=== PATIENT | female | born 1990 | race Caucasian/White ===

== ENCOUNTER 2018-06-23 18:48 | Emergency (ER) | payer MEDICAID, SELFPAY ==
[2018-06-23 18:54] VITALS: BP 119/63; PULSE 112; RESP 18; TEMP 37; O2SAT 99
--- NOTE | 2018-06-23 19:21 | W.ED.GENAD ---
Discharge Plan Disposition Patient Disposition: HOME Condition: Fair Discharge Details Chief Complaint: Sorethroat Clinical Impression: Strep pharyngitis Primary Care Provider: Valery Yepez ED Provider: Shelbi Villanueva Home Meds and New Rx's Prescriptions: New penicillin V potassium 500 mg tablet 500 mg PO BID 10 Days Qty: 20 RF: 0 ondansetron 4 mg tablet,disintegrating 4 mg PO QID PRN (Reason: nausea and vomiting) Qty: 10 RF: 0 Continue medroxyprogesterone [Depo-Provera] 150 MG/1 ML suspension 150 mg IM Q 3 MONTHS RF: 0 Discharge Instructions Instructions: Pharyngitis (ED) Additional Instructions: Encourage hydration. Tylenol and ibuprofen as needed for discomfort. He may continue with the lidocaine as prescribed to help with sore throat. We continue with lozenges if this helps. Zofran is prescribed to help with nausea. I have asked our career counselor to reach out to you with local primary care physician and follow up appointment. Take antibiotic as prescribed, even if symptoms improve please take the entire course. If you develop worsening pain, inability to stay hydrated or other new/worsening symptoms please seek care urgently once again. Stand Alone Forms: Work Release Referrals: Valery Yepez [Primary Care Provider] - Discharge Data Discharge Date/Time-TO BE ENTERED AT DEPARTURE: 06/23/18 20:29 Medical Decision Making Patient 28-year-old female, accompanied by significant other, with chief complaint of sore throat that began last night. States her throat has progressively been worsening. States that now she is having discomfort with swallowing. She is handling secretions well. Has been trying to hydrate. Is not taking anything since Tylenol early this morning. On exam, posterior oropharynx to be erythematous with white exudate. No swelling, uvula is midline. No trismus, no swelling under the tongue. Strep test was performed by nursing staff was found to be positive. Discussed these findings with the patient. She is endorsing some nausea and epigastric discomfort which she reports is acute on chronic. She reports she is been diagnosed with colitis previously but is unclear if this is ulcerative colitis or was an acute bout of colitis. She reports that she is not seen been seen by primary care physician for several years. She has had this chronic waxing and waning abdominal discomfort for the past several years, it will try to set the patient up with a primary care physician, I have placed a request with our career counselor to help establish PCP. She reports she has had colonoscopy and endoscopy hisorically for this pain. I questioned if she would like this evaluated at this time and she does not feel that it has acutely changed. The patient is a nursing nausea, will give ODT Zofran, Tylenol and ibuprofen as well as viscous lidocaine to help with sore throat. UPT negative. Patient reports she is feeling improved with Zofran, states that epigastric discomfort is improving. Will treat strep throat with Penicillin. Encouraged hydration. Discussed new/wrosening symptoms and when to seek care urgently once again. client service coordinator to help with PCP set up as above. All of her questions adn concerns were addressed, she is in agreement with this plan. HPI General Mode of arrival: ambulatory. Date/Time Provider Initiated Documentation: 06/23/18 19:12. Limitations to Documentation: no limitations. Information obtained by: patient and family. History of Present Illness 28 year old F presents to the emergency department with the chief complaint of sore throat, described as moderate, Quality is described as stabbing and aching, and is localized to the mouth. Patient reports no radiation. Patient started experiencing this day(s) (1) and it has been constant. No relieving factors improve symptom(s), Eating worsens symptoms . Patient notes loss of appetite and nausea/vomiting (endorses chronic nausea which has been icnreased with acute illness); denies chest pain, cough, fever/chills, headaches, rash and syncope. Patient did receive the following treatments prior to arrival, none Related Data Home Medications Medication Instructions Recorded Confirmed medroxyprogesterone [Depo-Provera] 150 mg IM Q 3 MONTHS vial 08/07/17 06/23/18 ondansetron 4 mg PO QID PRN #10 tab 06/23/18 penicillin V potassium 500 mg PO BID 10 Days #20 tab 06/23/18 Previous Rx's Medication Instructions Recorded ondansetron 4 mg PO QID PRN #10 tab 06/23/18 penicillin V potassium 500 mg PO BID 10 Days #20 tab 06/23/18 Allergies Allergy/AdvReac Type Severity Reaction Status Date / Time BANDAID ADHESIVE Allergy Mild SKIN Uncoded 08/28/17 12:09 IRRITATION General Stated Complaint: Sorethroat PEDRO: 4 Review of Systems Constitutional Reports as per HPI and Denies headache(s) Eyes Denies blurry vision and Denies irritation ENT Reports as per HPI, Reports dysphagia, Denies ear discharge, Denies otalgia, Denies facial pain, Denies headache(s), Denies sinus pain, Denies sinus pressure and Reports sore throat Cardiovascular Reports as per HPI, Denies chest pain and Denies dyspnea Respiratory Reports as per HPI, Denies cough and Denies dyspnea Gastrointestinal Reports as per HPI, Reports abdominal pain (endorses chronic epigastric discomfort, unchanged), Denies change in bowel habits, Reports dysphagia, Reports nausea and Denies vomiting Integumentary/Breasts Reports as per HPI and Denies rash Neurologic Reports as per HPI and Denies headache(s) [facility] Social History Smoking/Tobacco Use Status: Never Exam Const General: cooperative, healthy appearing, comfortable, no acute distress, well developed and well groomed Nutritional Appearance: average body habitus and well nourished Orientation: alert and awake [facility] Head: normal to inspection, normocephalic and atraumatic Ears: hearing grossly normal bilaterally, external ears normal and TM's normal bilaterally General nose exam: external nose normal Face and sinus: normal facial exam and sinuses nontender Mouth: oral mucosae normal, lip normal, oropharynx normal, moist mucous membranes, no muffled voice and no trismus Teeth and gingiva: dentition normal Throat: uvula midline, posterior oropharynx abnormal erythema and exudates, uvula not displaced and no uvular edema Eyes General: appearance normal, both eyes and all related structures Neck Neck: trachea midline, supple and lymphadenopathy Resp Effort & Inspection: normal respiratory effort, able to speak in complete sentences and no respiratory distress Auscultation: clear to auscultation bilaterally, no rales, no rhonchi and no wheezes Cardio Rate: regular rate Rhythm: regular rhythm Heart Sounds: S1 normal and S2 normal GI Inspection: normal to inspection, no edema, non-distended and no incisions Palpation: soft, no hepatosplenomegaly, not firm, no guarding, not rigid and tender (epigastric discomfort with palpation) Auscultation: normal bowel sounds Skin General skin exam: no rashes or lesions noted Trauma: no lacerations or abrasions Neuro General: alert and awake Cognition: normal cognition Speech: speech normal Gait: normal gait Psych Appearance: grossly normal and well kempt Mental Status: mental status grossly normal Speech and Movement: speech and movement normal Course Vital Signs Temperature 37.0 C 06/23/18 18:54 Pulse 112 H 06/23/18 18:54 Respiratory Rate 18 06/23/18 18:54 Blood Pressure 119/63 06/23/18 18:54 Pulse Oximetry 99 06/23/18 18:54 Temperature 37.0 C 06/23/18 18:54 Temperature Source Temporal Artery Scan 06/23/18 18:54 Pulse 112 H 06/23/18 18:54 Respiratory Rate 18 06/23/18 18:54 Respiratory Effort 06/23/18 18:54 Blood Pressure 119/63 06/23/18 18:54 Blood Pressure Position Sitting 06/23/18 18:54 Pulse Oximetry 99 06/23/18 18:54 Oxygen Delivery Method Room Air 06/23/18 18:54 Oxygen Flow Rate 0 06/23/18 18:54 Lab/Test Results Lab/Test Results: POC Strep Test-STEW(Rapid) Start: 06/23/18 19:05 Freq: .Rapid Strep Test Status: Active Protocol: Document 06/23/18 19:06 (Rec: 06/23/18 19:06 [email or web address]) Strep test-STEW(Rapid)-POC POC-Strep test-STEW (Rapid) Positive POC-Strep test-STEW (Rapid) Positive
--- NOTE | 2018-06-23 19:25 | ED.GENADUL_ITS ---
Discharge Plan Disposition Patient Disposition: HOME Condition: Fair Discharge Details Chief Complaint: Sorethroat Clinical Impression: Strep pharyngitis Primary Care Provider: Valery Yepez ED Provider: Shelbi Villanueva Home Meds and New Rx's Prescriptions: New penicillin V potassium 500 mg tablet 500 mg PO BID 10 Days Qty: 20 RF: 0 ondansetron 4 mg tablet,disintegrating 4 mg PO QID PRN (Reason: nausea and vomiting) Qty: 10 RF: 0 Continue medroxyprogesterone [Depo-Provera] 150 MG/1 ML suspension 150 mg IM Q 3 MONTHS RF: 0 Discharge Instructions Instructions: Pharyngitis (ED) Additional Instructions: Encourage hydration. Tylenol and ibuprofen as needed for discomfort. He may continue with the lidocaine as prescribed to help with sore throat. We continue with lozenges if this helps. Zofran is prescribed to help with nausea. I have asked our pediatric care coordinator to reach out to you with local primary care physician and follow up appointment. Take antibiotic as prescribed , even if symptoms improve please take the entire course. If you develop worsening pain, inability to stay hydrated or other new/worsening symptoms please seek care urgently once again. Stand Alone Forms: Work Release Referrals: Valery Yepez [Primary Care Provider] - Discharge Data Discharge Date/Time-TO BE ENTERED AT DEPARTURE: 06/23/18 20:29 Medical Decision Making Patient 28-year-old female, accompanied by significant other, with chief complaint of sore throat that began last night. States her throat has progressively been worsening. States that now she is having discomfort with swallowing. She is handling secretions well. Has been trying to hydrate. Is not taking anything since Tylenol early this morning. On exam, posterior oropharynx to be erythematous with white exudate. No swelling, uvula is midline. No trismus, no swelling under the tongue. Strep test was performed by nursing staff was found to be positive. Discussed these findings with the patient. She is endorsing some nausea and epigastric discomfort which she reports is acute on chronic. She reports she is been diagnosed with colitis previously but is unclear if this is ulcerative colitis or was an acute bout of colitis. She reports that she is not seen been seen by primary care physician for several years. She has had this chronic waxing and waning abdominal discomfort for the past several years, it will try to set the patient up with a primary care physician, I have placed a request with our pediatric care coordinator to help establish PCP. She reports she has had colonoscopy and endoscopy hisorically for this pain. I questioned if she would like this evaluated at this time and she does not feel that it has acutely changed. The patient is a nursing nausea, will give ODT Zofran, Tylenol and ibuprofen as well as viscous lidocaine to help with sore throat. UPT negative. Patient reports she is feeling improved with Zofran, states that epigastric discomfort is improving. Will treat strep throat with Penicillin. Encouraged hydration. Discussed new/wrosening symptoms and when to seek care urgently once again. career development coordinator/teacher to help with PCP set up as above. All of her questions adn concerns were addressed, she is in agreement with this plan. HPI General Mode of arrival: ambulatory . Date/Time Provider Initiated Documentation: 06/23/18 19:12 . Limitations to Documentation: no limitations . Information obtained by: patient and family . History of Present Illness 28 year old F presents to the emergency department with the chief complaint of sore throat, described as moderate, Quality is described as stabbing and aching, and is localized to the mouth. Patient reports no radiation. Patient started experiencing this day(s) (1) and it has been constant. No relieving factors improve symptom(s), Eating worsens symptoms . Patient notes loss of appetite and nausea/vomiting (endorses chronic nausea which has been icnreased with acute illness); denies chest pain, cough, fever/chills, headaches, rash and syncope. Patient did receive the following treatments prior to arrival, none Related Data Home Medications Medication Instructions Recorded Confirmed medroxyprogesterone [Depo-Provera] 150 mg IM Q 3 MONTHS vial 08/07/17 06/23/18 ondansetron 4 mg PO QID PRN #10 tab 06/23/18 penicillin V potassium 500 mg PO BID 10 Days #20 tab 06/23/18 Previous Rx's Medication Instructions Recorded ondansetron 4 mg PO QID PRN #10 tab 06/23/18 penicillin V potassium 500 mg PO BID 10 Days #20 tab 06/23/18 Allergies Allergy/AdvReac Type Severity Reaction Status Date / Time BANDAID ADHESIVE Allergy Mild SKIN Uncoded 08/28/17 12:09 IRRITATION General Stated Complaint: Sorethroat PEDRO: 4 Review of Systems Constitutional Reports as per HPI and Denies headache(s) Eyes Denies blurry vision and Denies irritation ENT Reports as per HPI, Reports dysphagia, Denies ear discharge, Denies otalgia, Denies facial pain, Denies headache(s), Denies sinus pain, Denies sinus pressure and Reports sore throat Cardiovascular Reports as per HPI, Denies chest pain and Denies dyspnea Respiratory Reports as per HPI, Denies cough and Denies dyspnea Gastrointestinal Reports as per HPI, Reports abdominal pain (endorses chronic epigastric discomfort, unchanged), Denies change in bowel habits, Reports dysphagia, Reports nausea and Denies vomiting Integumentary/Breasts Reports as per HPI and Denies rash Neurologic Reports as per HPI and Denies headache(s) [facility] Social History Smoking/Tobacco Use Status: Never Exam Const General: cooperative, healthy appearing, comfortable, no acute distress, well developed and well groomed Nutritional Appearance: average body habitus and well nourished Orientation: alert and awake [facility] Head: normal to inspection, normocephalic and atraumatic Ears: hearing grossly normal bilaterally, external ears normal and TM's normal bilaterally General nose exam: external nose normal Face and sinus: normal facial exam and sinuses nontender Mouth: oral mucosae normal, lip normal, oropharynx normal, moist mucous membranes, no muffled voice and no trismus Teeth and gingiva: dentition normal Throat: uvula midline, posterior oropharynx abnormal erythema and exudates, uvula not displaced and no uvular edema Eyes General: appearance normal, both eyes and all related structures Neck Neck: trachea midline, supple and lymphadenopathy Resp Effort & Inspection: normal respiratory effort, able to speak in complete sentences and no respiratory distress Auscultation: clear to auscultation bilaterally, no rales, no rhonchi and no wheezes Cardio Rate: regular rate Rhythm: regular rhythm Heart Sounds: S1 normal and S2 normal GI Inspection: normal to inspection, no edema, non-distended and no incisions Palpation: soft, no hepatosplenomegaly, not firm, no guarding, not rigid and tender (epigastric discomfort with palpation) Auscultation: normal bowel sounds Skin General skin exam: no rashes or lesions noted Trauma: no lacerations or abrasions Neuro General: alert and awake Cognition: normal cognition Speech: speech normal Gait: normal gait Psych Appearance: grossly normal and well kempt Mental Status: mental status grossly normal Speech and Movement: speech and movement normal Course Vital Signs Temperature 37.0 C 06/23/18 18:54 Pulse 112 H 06/23/18 18:54 Respiratory Rate 18 06/23/18 18:54 Blood Pressure 119/63 06/23/18 18:54 Pulse Oximetry 99 06/23/18 18:54 Temperature 37.0 C 06/23/18 18:54 Temperature Source Temporal Artery Scan 06/23/18 18:54 Pulse 112 H 06/23/18 18:54 Respiratory Rate 18 06/23/18 18:54 Respiratory Effort 06/23/18 18:54 Blood Pressure 119/63 06/23/18 18:54 Blood Pressure Position Sitting 06/23/18 18:54 Pulse Oximetry 99 06/23/18 18:54 Oxygen Delivery Method Room Air 06/23/18 18:54 Oxygen Flow Rate 0 06/23/18 18:54 Lab/Test Results Lab/Test Results: POC Strep Test-STEW(Rapid) Start: 06/23/18 19: 05 Freq: .Rapid Strep Test Status: Active Protocol: Document 06/23/18 19:06 (Rec: 06/23/18 19:06 [email or web address]) Strep test-STEW(Rapid)-POC POC-Strep test-STEW (Rapid) Positive POC-Strep test-STEW (Rapid) Positive
[2018-06-23] MEDS: Ondansetron O.D.T. 4 MG TABEF PO (19:30)
[2018-06-23] MEDS: Acetaminophen 500 MG TAB 1000 MG PO (19:30)
[2018-06-23] MEDS: Ibuprofen 600 MG TAB PO (19:30)
[2018-06-23] MEDS: Lidocaine 2% Viscous 15 ML CUP PO (19:30)
[2018-06-23] MEDS: Penicillin V POTASSIUM 500 MG TAB 1000 MG PO (20:17)
[2018-06-23] MEDS: Ondansetron O.D.T. 4 MG TABEF 12 MG PO (20:17)
== END 2018-06-23 20:29 | disposition home or self-care (01) ==
PROVIDERS: Emergency Provider Physician Assistant; PCP Family Medicine
DX: J02.0 Streptococcal pharyngitis (principal); R11.0 Nausea
CPT/HCPCS: 81025; 87880; 99283

== ENCOUNTER 2018-07-31 16:53 | Emergency (ER) | payer MEDICAID, SELFPAY ==
[2018-07-31 17:12] VITALS: BP 110/62; PULSE 84; RESP 16; TEMP 36.6; O2SAT 97
[2018-07-31] MEDS: Promethazine 25 MG TAB PO (18:01)
[2018-07-31] MEDS: Benzonatate 100 MG CAP PO (18:02)
--- NOTE | 2018-07-31 18:55 | ED.GENADUL_ITS ---
Discharge Plan Disposition Patient Disposition: HOME Condition: Stable Discharge Details Chief Complaint: RespSymp Clinical Impression: Influenza Primary Care Provider: Valery Yepez ED Provider: James Muñoz Home Meds and New Rx's Prescriptions: New benzonatate 200 mg capsule 200 mg PO TID PRN (Reason: cough) Qty: 30 RF: 0 promethazine 25 mg tablet 25 mg PO Q6H PRN (Reason: nausea and vomiting) Qty: 14 RF: 0 No Action medroxyprogesterone [Depo-Provera] 150 MG/1 ML suspension 150 mg IM Q 3 MONTHS RF: 0 ondansetron 4 mg tablet,disintegrating 4 mg PO QID PRN (Reason: nausea and vomiting) Qty: 10 RF: 0 Discharge Instructions Instructions: Influenza (ED) Additional Instructions: Get plenty of rest and stay well-hydrated during illness. If not improving over the next week follow-up with your primary care provider. Return to emergency department for any new or worsening symptoms Referrals: Valery Yepez [Primary Care Provider] - (As needed for reassessment) Discharge Data Discharge Date/Time-TO BE ENTERED AT DEPARTURE: 07/31/18 19:08 Medical Decision Making Patient presenting to the emergency department for chief complaint of cold symptoms for the past 7 days. She states cough, nasal congestion, body aches, and some sore throat. Patient does state 2 weeks ago she was diagnosed with strep throat and can and took medication and has had some improvement of sore throat but then developed all the other symptoms similar to flu. technical staff engineer initiated rapid strep testing which was positive but upon examination patient has no significant tonsillary erythema, exudates, or cervical lymphadenopathy. Patient has clear lung sounds throughout and is otherwise unremarkable. Feel that rapid strep testing may have continue to be positive due to patient's recent illness but given that she states that her throat is improved did discuss with her risk versus benefit of repeat therapy which she was agreeable to watching symptoms and returning for any worsening. Otherwise I feel that patient has secondary viral illness more than likely influenza type and needs symptomatic medication. Patient has had symptoms longer than 48 hours I do not feel that Tamiflu would benefit patient. patient did state some nausea associate with her illness so patient given promethazine, and Tessalon Perles for symptomatic control informed to follow-up with primary care provider as needed for reassessment or to return for new or worsening symptoms. After discussion of diagnosis and plan of care patient is no further needs, questions, or concerns and states clear understanding to return to the emergency department for any worsening symptoms. HPI General Mode of arrival: ambulatory . Date/Time Provider Initiated Documentation: 07/31/18 17:10 . Limitations to Documentation: no limitations . Information obtained by: patient and RN notes reviewed . History of Present Illness 28 year old F presents to the emergency department with the chief complaint of cold symptoms, described as moderate, with intensity rated at 4. Quality is described as other (body aches), Patient reports no radiation. Patient started experiencing this week(s) (1) and it has been constant. No relieving factors improve symptom(s), No exacerbating factors reported . Related Data Home Medications Medication Instructions Recorded Confirmed medroxyprogesterone [Depo-Provera] 150 mg IM Q 3 MONTHS vial 08/07/17 07/31/18 ondansetron 4 mg PO QID PRN #10 tab 06/23/18 07/31/18 benzonatate 200 mg PO TID PRN #30 cap 07/31/18 promethazine 25 mg PO Q6H PRN #14 tab 07/31/18 Previous Rx's Medication Instructions Recorded ondansetron 4 mg PO QID PRN #10 tab 06/23/18 benzonatate 200 mg PO TID PRN #30 cap 07/31/18 promethazine 25 mg PO Q6H PRN #14 tab 07/31/18 Allergies Allergy/AdvReac Type Severity Reaction Status Date / Time BANDAID ADHESIVE Allergy Mild SKIN Uncoded 08/28/17 12:09 IRRITATION General Stated Complaint: RespSymp PEDRO: 3 Review of Systems Constitutional Reports body ache(s), Reports chills, Denies fever(s), Denies headache(s) and Reports malaise Eyes Denies eye discharge ENT Reports as per HPI, Reports otalgia, Denies headache(s), Reports nasal con gestion, Reports nasal discharge, Denies neck pain, Reports sinus pressure and Denies throat swelling Cardiovascular Denies chest pain and Denies dyspnea Respiratory Denies change in phlegm color, Reports cough, Denies pain with cough and Denies dyspnea Musculoskeletal Denies joint swelling and Denies neck pain Integumentary/Breasts Denies rash Neurologic Denies headache(s) Allergic/Immunologic Denies throat swelling [facility] Social History Smoking/Tobacco Use Status: Never Exam Const General: cooperative, comfortable and no acute distress Orientation: alert and awake [facility] Head: normal to inspection, normocephalic and atraumatic Ears: hearing grossly normal bilaterally and TM's normal bilaterally General nose exam: external nose normal Face and sinus: sinuses nontender and no erythema Mouth: oral mucosae normal, no drooling, no muffled voice and no trismus Throat: posterior oropharynx normal, tonsils normal and uvula midline Neck Neck: normal visual inspection, full ROM, no lymphadenopathy, no meningeal signs, trachea midline and supple Resp Effort & Inspection: normal respiratory effort, able to speak in complete sentences and cough Quality of cough: dry Auscultation: clear to auscultation bilaterally Cardio Rate: regular rate Rhythm: regular rhythm Heart Sounds: S1 normal, S2 normal, normal S1 and S2, no click, no gallops, no murmurs and no rubs Skin General skin exam: no rashes or lesions noted and dry skin (warm) Neuro General: alert, awake, oriented x3, gait normal and moves all extremities Cognition: normal cognition Speech: speech normal Course Vital Signs Temperature 36.6 C 07/31/18 17:12 Pulse 84 07/31/18 17:12 Respiratory Rate 16 07/31/18 17:12 Blood Pressure 110/62 07/31/18 17:12 Pulse Oximetry 97 07/31/18 17:12 Temperature 36.6 C 07/31/18 17:12 Temperature Source Skin 07/31/18 17:12 Pulse 84 07/31/18 17:12 Respiratory Rate 16 07/31/18 17:12 Respiratory Effort 07/31/18 18:08 Blood Pressure 110/62 07/31/18 17:12 Blood Pressure Position Supine 07/31/18 17:12 Pulse Oximetry 97 07/31/18 17:12 Oxygen Delivery Method Room Air 07/31/18 17:12 Oxygen Flow Rate 0 07/31/18 17:12 Lab/Test Results Lab/Test Results: POC Strep Test-STEW(Rapid) Start: 07/31/18 17:17 Freq: Status: Active Protocol: Document 07/31/18 17:17 TB (Rec: 07/31/18 17:18 TB [id number]) Strep test-STEW(Rapid)-POC POC-Strep test-STEW (Rapid) Positive POC-Strep test-STEW (Rapid) Positive
== END 2018-07-31 19:08 | disposition home or self-care (01) ==
PROVIDERS: Emergency Provider Nurse Practitioner Family; PCP Family Medicine
DX: J11.1 Influenza due to unidentified influenza virus with other respiratory manifestations (principal)
CPT/HCPCS: 87880; 99283

== ENCOUNTER 2018-08-06 19:55 | Emergency (ER) | payer MEDICAID, SELFPAY ==
[2018-08-06 20:00] VITALS: BP 99/74; PULSE 105; RESP 18; TEMP 36.5; O2SAT 98
--- NOTE | 2018-08-06 20:13 | DI.RAD_ITS ---
SYMPTOM/DIAGNOSIS: COUGH PA AND LATERAL CHEST: No priors. The heart is normal in size. The lungs are clear. The mediastinal structures and pleura appear intact. CONCLUSION: Normal chest.
[2018-08-06] MEDS: Albuterol/Ipratropium 3 ML UPD VIAL UPD (20:17)
--- NOTE | 2018-08-06 20:19 | NUR.NOTE ---
patient medicated per MD wen Nursing Note:
--- NOTE | 2018-08-06 20:46 | ED.GENADUL_ITS ---
Discharge Plan Disposition Patient Disposition: HOME Condition: Good Discharge Details Chief Complaint: RespSymp Clinical Impression: URI (upper respiratory infection), Pneumonia, Exacerbation of reactive airway disease Primary Care Provider: Valery Yepez ED Provider: Kain Gonzalez Home Meds and New Rx's Prescriptions: New azithromycin 250 mg tablet See Rx Instructions .ROUTE .COMPLEX Qty: 6 RF: 0 albuterol sulfate 90 mcg/actuation HFA aerosol inhaler 2 puff IH Q6H PRN (Reason: shortness of breath or wheezing) Qty: 8 RF: 0 No Action medroxyprogesterone [Depo-Provera] 150 MG/1 ML suspension 150 mg IM Q 3 MONTHS RF: 0 ondansetron 4 mg tablet,disintegrating 4 mg PO QID PRN (Reason: nausea and vomiting) Qty: 10 RF: 0 benzonatate 200 mg capsule 200 mg PO TID PRN (Reason: cough) Qty: 30 RF: 0 promethazine 25 mg tablet 25 mg PO Q6H PRN (Reason: nausea and vomiting) Qty: 14 RF: 0 Discharge Instructions Instructions: Reactive Airways Disease (ED), Pneumonia (ED) Additional Instructions: Please take medication as directed. Please avoid any significant contact with vape smoke or tobacco smoke. If you notice any worsening of your symptoms, or any new symptoms such as vomiting, diarrhea, fever, chills, shortness of breath, chest pain, numbness, weakness, or fainting , please return immediately to the emergency department for reevaluation. Please follow up with your primary care provider as soon as possible for reassessment and reevaluation. As always, it was a pleasure participating in your medical care today. Referrals: Valery Yepez [Primary Care Provider] - Medical Decision Making This is a 28-year-old female with no significant past medical history who presents today for evaluation of upper respiratory symptoms for last 2 weeks. It has been associated with cough with productive yellow sputum, congestion, runny nose, but no recent fever or chills. She has multiple sick contacts at home and at work. The patient does not smoke tobacco but does vapor regularly. Physical exam demonstrates reassuring physical exam findings with no significant wheezes rales or rhonchi. No evidence of erythema in the posterior oropharynx, or other signs of severe infection. However because of longevity the patient's symptoms I am concerned for a community-acquired atypical pneumonia. We will get a chest x-ray to rule this out. With the longevity the patient's symptoms there may be a component of chronic bronchitis and reactive airway disease. We will give a DuoNeb see if this improves her symptomatology. Plan: 19 Chest x-ray results per virtual radiology is read as no acute cardiopulmonary process, however I do feel that there may be a very small amount of consolidation in the left lower lung matthew. With the patient's clinical symptomatology I do feel that this clinically correlates with her symptoms today. I do feel that she would benefit from dose of antibiotics at this point in her course of her illness. We discussed red flags which to return, the importance of PCP follow-up, and the importance of medication compliance. She will get an inhaler, and azithromycin for home use. I have extensively reviewed the treatment plan and discharge instructions with the patient and their family. I have addressed all patient concerns at this time. The patient and family was made aware of what symptoms to monitor for that would warrant a return to the emergency department. Discussed the plan with the patient and family, they demonstrate verbal understanding and agreement with our assessment and plan at this time. FINDINGS: Lungs: No consolidation. Pleural space: No pleural effusion. No pneumothorax. Heart/Mediastinum: No cardiomegaly. Bones/joints: No acute fracture. IMPRESSION: No acute cardiopulmonary pathology. Dictated and Authenticated by: Magali Hampton MD. [facility] General Date/Time Provider Initiated Documentation: 08/06/18 19:59 . [facility] Narrative: This is a 28-year-old female with no significant past medical history who presents today for evaluation of cough. The patient states that for the last 2 weeks she has had a cough, she was seen and evaluated here roughly a week ago and given antitussive medications. She was out of the window for treatment for influenza, and she demonstrated no clinical signs of pneumonia at that time. Since then her cough is continued, she has mild shortness of breath, mild sore throat, her cough has yellow productive sputum associated with it. She denies any significant chest pain. She has not had any fevers for the last 3-4 days. She does admit to notable facial congestion, and runny nose associated with her symptoms. Previously she had some episodes of vomiting and diarrhea, both of these have resolved. Patient denies any tobacco abuse but she does admit to regular vaping. Past surgical history is positive for C-sections. She does take the Depo shot. 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 Patient denies any other complaints, any other modifying factors, at this time. Related Data Home Medications Medication Instructions Recorded Confirmed medroxyprogesterone [Depo-Provera] 150 mg IM Q 3 MONTHS vial 08/07/17 08/06/18 ondansetron 4 mg PO QID PRN #10 tab 06/23/18 07/31/18 benzonatate 200 mg PO TID PRN #30 cap 07/31/18 promethazine 25 mg PO Q6H PRN #14 tab 07/31/18 albuterol sulfate 2 puff IH Q6H PRN #8 gm 08/06/18 azithromycin See Rx Instructions .ROUTE 08/06/18 .COMPLEX #6 tab Previous Rx's Medication Instructions Recorded ondansetron 4 mg PO QID PRN #10 tab 06/23/18 benzonatate 200 mg PO TID PRN #30 cap 07/31/18 promethazine 25 mg PO Q6H PRN #14 tab 07/31/18 albuterol sulfate 2 puff IH Q6H PRN #8 gm 08/06/18 azithromycin See Rx Instructions .ROUTE 08/06/18 .COMPLEX #6 tab Allergies Allergy/AdvReac Type Severity Reaction Status Date / Time BANDAID ADHESIVE Allergy Mild SKIN Uncoded 08/06/18 20:06 IRRITATION General Stated Complaint: RespSymp PEDRO: 4 Review of Systems Review of Systems All systems reviewed & are unremarkable except as noted in HPI and below PFSH Social History Smoking/Tobacco Use Status: Never Exam Narrative Exam Narrative: 1.Const: Well-nourished, Well-developed, appearing stated age 2.Eyes: PERRL, no conjunctival injection, and symmetrical lids. 3.ENT: Atraumatic external nose and ears. Moist MM. Neck: Symmetric, trachea midline, No thyromegaly. No significant erythema in the posterior oropharynx. No tonsillar exudates. No evidence of peritonsillar edema. Patient demonstrates good movement of cervical neck. There is no nuchal rigidity, no nuchal tenderness. Patient is able to flex the neck without any difficulty or significant pain. Negative Kernig's and Brudzinski sign. 4.CVS: +S1/S2, No murmurs or gallops. Peripheral pulses 2+ and equal in all extremities. Brisk capillary refill in all extremities. 5.RESP: Unlabored respiratory effort. Clear to auscultation bilaterally. No wheezes rales or rhonchi. 6.GI: Soft, Nontender/Nondistended, No hepatosplenomegaly. No guarding or rebound. 7.MSK: Normocephalic/Atraumatic, Extremities w/o deformity or ttp No cyanosis or clubbing, Normal movement of all extremities 8.Skin: Warm, Dry. No rashes or lesions. 9.Neuro: dam tender assistant II-XII grossly intact. Sensation grossly intact, no focal neurologic deficits. 10.Psych: (AAO) x3. Appropriate mood and affect Course Vital Signs Temperature 36.5 C 08/06/18 20:00 Pulse 105 H 08/06/18 20:00 Respiratory Rate 18 08/06/18 20:00 Blood Pressure 99/74 L 08/06/18 20:00 Pulse Oximetry 98 08/06/18 20:00 Temperature 36.5 C 08/06/18 20:00 Temperature Source Skin 08/06/18 20:00 Pulse 105 H 08/06/18 20:00 Respiratory Rate 18 08/06/18 20:00 Respiratory Effort 08/06/18 20:05 Blood Pressure 99/74 L 08/06/18 20:00 Pulse Oximetry 98 08/06/18 20:00 Oxygen Delivery Method Room Air 08/06/18 20:00 Oxygen Flow Rate 0 08/06/18 20:00
--- NOTE | 2018-08-06 21:05 | DI.VRAD_ITS ---
EXAM: XR Chest, 2 Views EXAM DATE/TIME: 08/06/2018 8:14 PM CLINICAL HISTORY: 28 years old, female; Signs and symptoms; Cough; Patient HX: Cough two weeks TECHNIQUE: XR of the chest, 2 views. COMPARISON: No relevant prior studies available. FINDINGS: Lungs: No consolidation. Pleural space: No pleural effusion. No pneumothorax. Heart/Mediastinum: No cardiomegaly. Bones/joints: No acute fracture. IMPRESSION: No acute cardiopulmonary pathology. Dictated and Authenticated by: Magali Hampton MD. Ordering:SAYDA Finnegan MD
== END 2018-08-06 21:20 | disposition home or self-care (01) ==
PROVIDERS: Emergency Provider Student in an Organized Health Care Education/Training Program; PCP Family Medicine
DX: J44.0 Chronic obstructive pulmonary disease with (acute) lower respiratory infection (principal); J18.9 Pneumonia, unspecified organism; J06.9 Acute upper respiratory infection, unspecified; J45.909 Unspecified asthma, uncomplicated
CPT/HCPCS: 94640; 99283; 71046; J7620

== ENCOUNTER 2018-10-01 19:41 | Emergency (ER) | payer MEDICAID, SELFPAY ==
[2018-10-01] VITALS (14 sets, daily range): BP systolic 81–114; BP diastolic 45–80; PULSE 83–110; RESP 7–20; O2SAT 95–99
--- NOTE | 2018-10-01 19:55 | W.ED.GENAD ---
Discharge Plan Disposition Patient Disposition: HOME Condition: Stable Discharge Details Chief Complaint: RespSymp Clinical Impression: Cough Primary Care Provider: Valery Yepez ED Provider: Jeovanny Quinones Home Meds and New Rx's Prescriptions: New prednisone 20 mg tablet 60 mg PO DAILY 4 Days Qty: 12 RF: 0 Continued medroxyprogesterone [Depo-Provera] 150 MG/1 ML suspension 150 mg IM Q 3 MONTHS RF: 0 ondansetron 4 mg tablet,disintegrating 4 mg PO QID PRN (Reason: nausea and vomiting) Qty: 10 RF: 0 benzonatate 200 mg capsule 200 mg PO TID PRN (Reason: cough) Qty: 30 RF: 0 promethazine 25 mg tablet 25 mg PO Q6H PRN (Reason: nausea and vomiting) Qty: 14 RF: 0 azithromycin 250 mg tablet See Rx Instructions .ROUTE .COMPLEX Qty: 6 RF: 0 albuterol sulfate 90 mcg/actuation HFA aerosol inhaler 2 puff IH Q6H PRN (Reason: shortness of breath or wheezing) Qty: 8 RF: 0 Discharge Instructions Instructions: Acute Cough (ED) Additional Instructions: follow up with your primary care provider within a week especially if still symptomatic return to the emergency department if you feel you are more short of breath or feel more ill. Medical Decision Making 28 yo female with hx of asthma per pt, vapes, denies alcohol or drug use, comes in with chief complaint of persistent cough since yesterday and shortness of breath. Denies fevers, chills, n/v, recent travel or rashes. She has diffuse wheezing on lung exam, no lower extremity edema or jvd. I suspect her symptoms are due to asthma, is noted to by hypotensive in the 80's and does appear dehydrated, will give fluids, duoneb and steroids and obtain cxr to eval for pna and also test for influenza pt's labs unremarkable, BP now 110/80, lactate less than 2. Xray negative on my read. She feels significantly improved. given no fever, unless vrad sees infiltrate do not feel abx indicated. Will d/x on steroids and advised f/u with pcp and return precautions given Differential Diagnosis asthma, pna, influenza Imaging Data Radiologic Study: Attestation: I personally reviewed and interpreted this imaging study as follows: My impression: no acute findings Radiologist's impression: IMPRESSION: No acute cardiopulmonary pathology Lab Data Lab results reviewed: Yes I reviewed the patient's lab results. HPI General Mode of arrival: ambulatory. Date/Time Provider Initiated Documentation: 10/01/18 19:49. Limitations to Documentation: no limitations. Information obtained by: patient. History of Present Illness 28 year old F presents to the emergency department with the chief complaint of cough, described as severe, with intensity rated at 6. Patient reports no radiation. Patient started experiencing this day(s) (1) and it has been constant. No relieving factors improve symptom(s), No exacerbating factors reported . Patient did receive the following treatments prior to arrival, none Related Data Home Medications Medication Instructions Recorded Confirmed medroxyprogesterone [Depo-Provera] 150 mg IM Q 3 MONTHS vial 08/07/17 08/06/18 ondansetron 4 mg PO QID PRN #10 tab 06/23/18 07/31/18 benzonatate 200 mg PO TID PRN #30 cap 07/31/18 promethazine 25 mg PO Q6H PRN #14 tab 07/31/18 albuterol sulfate 2 puff IH Q6H PRN #8 gm 08/06/18 azithromycin See Rx Instructions .ROUTE 08/06/18 .COMPLEX #6 tab prednisone 60 mg PO DAILY 4 Days #12 tab 10/01/18 Previous Rx's Medication Instructions Recorded ondansetron 4 mg PO QID PRN #10 tab 06/23/18 benzonatate 200 mg PO TID PRN #30 cap 07/31/18 promethazine 25 mg PO Q6H PRN #14 tab 07/31/18 albuterol sulfate 2 puff IH Q6H PRN #8 gm 08/06/18 azithromycin See Rx Instructions .ROUTE 08/06/18 .COMPLEX #6 tab prednisone 60 mg PO DAILY 4 Days #12 tab 10/01/18 Allergies Allergy/AdvReac Type Severity Reaction Status Date / Time BANDAID ADHESIVE Allergy Mild SKIN Uncoded 08/06/18 20:06 IRRITATION General Stated Complaint: RespSymp PEDRO: 3 Review of Systems Review of Systems All systems reviewed & are unremarkable except as noted in HPI and below Constitutional Denies chills, Denies fever(s) and Denies weakness Eyes Denies loss of vision ENT Denies change in voice Cardiovascular Denies chest pain Gastrointestinal Denies abdominal pain, Denies nausea and Denies vomiting Genitourinary Denies dysuria Musculoskeletal Denies joint swelling Integumentary/Breasts Denies rash Neurologic Denies loss of vision and Denies weakness Psychiatric Denies depression Endocrine Denies cold intolerance and Denies heat intolerance Allergic/Immunologic Denies urticaria [facility] Social History Smoking and Tabacco status: Current every day Exam Const General: no acute distress Orientation: alert HENMT Head: normal to inspection Ears: external ears normal General nose exam: external nose normal Mouth: moist mucous membranes Eyes General: appearance normal, both eyes and all related structures Neck Neck: normal visual inspection Resp Effort & Inspection: normal respiratory effort and able to speak in complete sentences Cardio Rate: regular rate Skin General skin exam: no rashes or lesions noted Neuro General: alert and oriented x3 Extrem General: normal to inspection Psych Mental Status: mental status grossly normal Course Vital Signs Pulse 94 H 10/01/18 19:43 Respiratory Rate 20 10/01/18 19:43 Blood Pressure 81/53 L 10/01/18 19:43 Pulse Oximetry 97 10/01/18 19:43 Pulse 94 H 10/01/18 19:43 Respiratory Rate 20 10/01/18 19:43 Respiratory Effort 10/01/18 19:52 Blood Pressure 81/53 L 10/01/18 19:43 Blood Pressure Position Sitting 10/01/18 19:43 Pulse Oximetry 97 10/01/18 19:43 Oxygen Delivery Method Room Air 10/01/18 19:43 Oxygen Flow Rate 0 10/01/18 19:43
[2018-10-01] MEDS: methylPREDNISolone SUCC 125 MG VIAL IVP (20:00)
[2018-10-01] MEDS: Albuterol/Ipratropium 3 ML UPD VIAL (20:00)
[2018-10-01] MEDS: Normal Saline 1,000 ML 1000 ML IV (20:01)
[2018-10-01 20:11] LABS: Abs Immature Grans 0.02 k/cumm (0.0-0.09); Absolute Basophil Count 0.05 k/cumm (0.0-0.2); Absolute Eosinophil Count 0.13 k/cumm (0.0-0.7); Absolute Lymphocyte Count 1.69 k/cumm (1.2-3.4); Absolute Monocyte Count 0.85 k/cumm (0.11-0.7); Absolute Neutrophil Count 4.63 k/cumm (1.2-6.7); Basophils % 0.7; Eosinophils % 1.8; HGB 14.1 g/dL (12.0-15.5); Immature Grans % 0.3; Lactate-non-spesis 1.6 mmol/l (0.6-1.4); Lymphocytes % 22.9; Mean Corp. HGB Concentration 34.4 g/dL (32.0-36.0); Mean Corpuscular Hemoglobin 30.4 pg (27.0-33.0); Mean Corpuscular Volume 88.4 fL (80-95); Mean Platelet Volume 11.6 fL (8.0-11.0); Monocytes % 11.5; Neutrophils % 62.8; Platelet Count 207 x1000/uL (130-400); RBC 4.64 m/cumm (4.00-5.20); RBC Distribution Width 13.7 % (11.7-14.6); White Blood Cell Count 7.37 k/cumm (4.4-10.8)
[2018-10-01 20:26] LABS: ALT 23 U/L (12-78); AST 23 U/L (15-37); Albumin 4.3 g/dL (3.4-5.0); Alkaline Phosphatase 53 U/L (46-116); Anion Gap 12.7 mmol/L (3-11); BUN 11 mg/dL (7-18); Bilirubin, Total 0.3 mg/dL (0.2-1.0); CO2 24.3 mmol/L (21.0-32.0); CREATININE 0.76 mg/dL (0.55-1.02); Calcium 9.3 mg/dL (8.5-10.1); Chloride 103 mmol/L (98-107); Glucose 103 mg/dL (70-100); Potassium 3.7 mmol/L (3.5-5.1); Sodium 140 mmol/L (136-145); Total Protein 8.4 g/dL (6.4-8.2)
--- NOTE | 2018-10-01 20:26 | DI.RAD_ITS ---
SYMPTOM/DIAGNOSIS: COUGH PA AND LATERAL CHEST: Comparison is made with 08/06/18. The cardiac and mediastinal contours have a normal appearance. The lungs are well inflated and clear. No infiltrate, effusion or pneumothorax is seen. IMPRESSION: Negative chest xray.
[2018-10-01] MEDS: Albuterol 2.5 MG/3 ML INH SOLN VIAL UPD (20:54)
[2018-10-01] MEDS: Dextromethorphan 6 MG/ML Suspension 30 MG PO (20:54)
--- NOTE | 2018-10-01 20:59 | DI.VRAD_ITS ---
EXAM: XR Chest, 2 Views EXAM DATE/TIME: 10/01/2018 7:55 PM CLINICAL HISTORY: 28 years old, female; Signs and symptoms; Cough TECHNIQUE: XR of the chest, 2 views. COMPARISON: CR XR CHEST 2V PA LATERAL 08/06/2018 8:36 PM FINDINGS: Lungs: No consolidation. Pleural space: No pleural effusion. No pneumothorax. Heart/Mediastinum: No cardiomegaly. Bones/joints: No acute fracture. IMPRESSION: No acute cardiopulmonary pathology. Dictated and Authenticated by: Magali Hampton MD. Ordering:NETO Up MD
== END 2018-10-01 21:30 | disposition home or self-care (01) ==
PROVIDERS: Emergency Provider Emergency Medicine; PCP Family Medicine
DX: R05 Cough (principal); J45.909 Unspecified asthma, uncomplicated; F17.210 Nicotine dependence, cigarettes, uncomplicated
CPT/HCPCS: 80053; 87449; 94640; 96361; 96374; 99284; 71046; 83605; 85025; J2930; J7613; J7620

== ENCOUNTER 2018-10-11 08:53 | Emergency (ER) | payer MEDICAID, SELFPAY ==
[2018-10-11 09:02] VITALS: BP 104/63; PULSE 79; RESP 18; TEMP 36.5; O2SAT 97
--- NOTE | 2018-10-11 09:46 | ED.GENADUL_ITS ---
Discharge Plan Disposition Patient Disposition: HOME Discharge Details Chief Complaint: RespSymp Clinical Impression: URI (upper respiratory infection) Primary Care Provider: Valery Yepez ED Provider: Dm Hatfield Home Meds and New Rx's Prescriptions: Continued medroxyprogesterone [Depo-Provera] 150 MG/1 ML suspension 150 mg IM Q 3 MONTHS RF: 0 albuterol sulfate 90 mcg/actuation HFA aerosol inhaler 2 puff IH Q6H PRN (Reason: shortness of breath or wheezing) Qty: 8 RF: 0 Discharge Instructions Instructions: Upper Respiratory Infection (ED) Additional Instructions: Please take tylenol 650mg every 6 hours as needed for pain. Drink plenty of fluids and allow for plenty of rest. Please contact your primary care physician to arrange follow-up. Return to the ER for any worsening or new concerning symptoms. Referrals: Valery Yepez [Primary Care Provider] - Medical Decision Making 28-year-old female here with cough for the past 2 weeks, refractory to azithromycin, now with ear pain and inflammation on the right. I suspect she has viral upper respiratory tract infection given constellation of symptoms and her exam. Consider PNA. Patient had negative chest x-ray on 10/01/2018. I suggested repeat chest x-ray and patient declined. I explained my reasoning for chest x-ray and patient provided informed refusal. She preferred to follow-up with her primary care physician should symptoms not improve with decreased vaping and use of albuterol inhaler. Usual and customary discharge instructions were provided. I specifically noted that the patient should return immediately should have any worsening or new concerning symptoms. HPI General Mode of arrival: ambulatory . Date/Time Provider Initiated Documentation: 10/11/18 09:24 . Limitations to Documentation: no limitations . Information obtained by: patient . HPI Narrative: 28yo f with history of asthma, vapes, here with chief complaint of cough. Patient notes that she has had cough for approximately 2 weeks. Patient notes fairly persistent cough. She was seen here in the emergency department for cough. She had a negative chest x-ray and was discharged on azithromycin and prednisone. She completed course without change in her symptoms. No notes that she is having associated right ear pain over the past few days. No SOB. No chest pain. Of note, her 2-year-old daughter is sick with upper respiratory tract infection. Related Data Home Medications Medication Instructions Recorded Confirmed medroxyprogesterone [Depo-Provera] 150 mg IM Q 3 MONTHS vial 08/07/17 10/11/18 albuterol sulfate 2 puff IH Q6H PRN #8 gm 08/06/18 10/11/18 Previous Rx's Medication Instructions Recorded albuterol sulfate 2 puff IH Q6H PRN #8 gm 08/06/18 Allergies Allergy/AdvReac Type Severity Reaction Status Date / Time codeine Allergy Intermediate Itching Unverified 10/11/18 09:04 BANDAID ADHESIVE Allergy Mild SKIN Uncoded 08/06/18 20:06 IRRITATION General Stated Complaint: RespSymp PEDRO: 4 Review of Systems Review of Systems All systems reviewed & are unremarkable except as noted in HPI and below Constitutional Denies chills and Denies fever(s) ENT Reports as per HPI Respiratory Reports cough PFSH Medical History Asthma (Chronic) Social History Smoking and Tabacco status: Current every day Exam Const General: cooperative and no acute distress HENMT Head: normocephalic and atraumatic Ears: TM abnormal bulging on the right and erythematous on the right; not with effusion and with no fluid behind the TM General nose exam: external nose normal Mouth: oral mucosae normal and moist mucous membranes Throat: posterior oropharynx normal Eyes Conjunctivae: normal conjunctivae Sclera: normal sclerae EOM: EOM intact bilaterally Neck Neck: trachea midline and supple Resp Effort & Inspection: normal respiratory effort, able to speak in complete sentences, no audible wheezes and cough Auscultation: clear to auscultation bilaterally, no rales, no rhonchi and no wheezes Cardio Jugular venous pressure: no JVD Rate: regular rate and not tachycardic Rhythm: regular rhythm GI Palpation: soft, not firm, no guarding, no masses, not rigid and nontender Skin General skin exam: no rashes or lesions noted Neuro General: alert, awake, oriented x3 and tone normal Extrem General: no edema Psych Appearance: grossly normal Course Vital Signs Temperature 36.5 C 10/11/18 09:02 Pulse 79 10/11/18 09:02 Respiratory Rate 18 10/11/18 09:02 Blood Pressure 104/63 10/11/18 09:02 Pulse Oximetry 97 10/11/18 09:02 Temperature 36.5 C 10/11/18 09:02 Temperature Source Skin 10/11/18 09:02 Pulse 79 10/11/18 09:02 Respiratory Rate 18 10/11/18 09:02 Respiratory Effort 10/11/18 09:09 Blood Pressure 104/63 10/11/18 09:02 Pulse Oximetry 97 10/11/18 09:02 Oxygen Delivery Method Room Air 10/11/18 09:02 Oxygen Flow Rate 0 10/11/18 09:02 Pain Level 5 10/11/18 09:02
== END 2018-10-11 09:59 | disposition home or self-care (01) ==
PROVIDERS: Emergency Provider Student in an Organized Health Care Education/Training Program; PCP Family Medicine
DX: J06.9 Acute upper respiratory infection, unspecified (principal); H92.01 Otalgia, right ear
CPT/HCPCS: 99282

== ENCOUNTER 2019-08-31 22:34 | Emergency (ER) | payer MEDICAID, SELFPAY ==
[2019-08-31 22:37] VITALS: BP 113/60; PULSE 90; RESP 18; TEMP 36.7; O2SAT 95
--- NOTE | 2019-08-31 22:50 | W.ED.GENAD ---
Discharge Plan Disposition Patient Disposition: HOME Condition: Good Discharge Details Chief Complaint: Headache Clinical Impression: Viral illness, Migraine Primary Care Provider: Valery Yepez ED Provider: Beulah Blake Home Meds and New Rx's Prescriptions: No Action medroxyprogesterone [Depo-Provera] 150 MG/1 ML suspension 150 mg IM Q 3 MONTHS RF: 0 albuterol sulfate 90 mcg/actuation HFA aerosol inhaler 2 puff IH Q6H PRN (Reason: shortness of breath or wheezing) Qty: 8 RF: 0 Discharge Instructions Instructions: Migraine Headache (ED), Viral Syndrome (ED) Additional Instructions: Drink plenty of fluids. Rest activities as tolerated. Follow-up promptly with your doctor as scheduled tomorrow. Continue your daily medications. Your influenza testing today was negative. Return for any worsening, alarming symptoms or for any concerns if needed sooner. Discharge Data Discharge Date/Time-TO BE ENTERED AT DEPARTURE: 09/01/19 01:00 Medical Decision Making This is a 29-year-old patient presenting to the emergency room this evening for complaints of headache. Patient reports headache for the last 3 weeks. Patient reports she does have a history of migraine headaches does have a specialist whom she works with in [place]. Patient reports greater than 5 years of intermittent headaches which she reports began after a head injury. Patient reports this is similar location and character of headaches she is previously experienced. Patient reports the difference this evening is the headache is lasting longer and is stronger. Patient reports visual aura was noted which is not atypical of her presentation. Patient does report associated nausea and vomiting this evening. Patient does report in the last 24 hours she has had onset of cough which is dry, body ache, feverish feeling and sweats. This is not typical of her headache presentation. Patient denies nasal congestion, ear pain or sore throat at this time. Patient denies abdominal pain or bowel changes. During patient's complaints of headaches in the last 3 weeks her specialist did call her in 3 days of medicine including steroids which was on relieving of her headache. Denies numbness, tingling or weakness in extremities. No other extremity complaints. Plan to obtain influenza swab and Basic labs as well as provide IV fluid, Toradol and Reglan. Patient's headache is significantly improved, she reports her headache is now tolerable. She does report persistent nausea. Will provide Zofran for persisting complaints of nausea however patient is feeling significantly improved and would like to be discharged home at this time. Reviewed patient's labs which are reassuring. Patient's influenza swab is negative. Patient counseled regarding appropriate care and management of viral syndrome as well as her migraines. Patient does have a follow-up with her specialist tomorrow. The patient was stable and requested discharge. Prior to discharge, my usual and customary return precautions were reviewed with the patient - this included follow-up instructions and reasons to return to the Emergency Department if conditions worsens, does not improve as expected, or other new concerns arise. HPI General Date/Time Provider Initiated Documentation: 08/31/19 22:35. HPI Narrative: This is a 29-year-old patient presenting to the ER this evening for complaints of headaches. Patient reports she has had several years of headache history which resulted after head injury reportedly. Patient has worked with a specialist in [place] frequently. Patient reports she has had intermittent headaches but this headache is lasting much longer than her typical. Patient reports headache for the last 3 weeks. She has tried oral steroids as well as an oral course of medications for 3 days which was on relieving of her headache. Patient reports headache is in typical location and is typical in character however slightly more severe. Patient reports typical visual changes which is reported as occasional orb. Patient does report in the last 24 hours onset of a new cough, she does report body ache, sweating, feeling clammy. Patient denies significant nasal congestion or sore throat. Patient does report nausea and vomiting worse in the last 24 hours. Patient denies any significant bowel changes. No dysuria, urgency or frequency of urination. Patient does have an appointment with her specialist in [place] tomorrow. Patient denies any new head injury or trauma. Related Data Home Medications Medication Instructions Recorded Confirmed medroxyprogesterone [Depo-Provera] 150 mg IM Q 3 MONTHS vial 08/07/17 08/31/19 albuterol sulfate 2 puff IH Q6H PRN #8 gm 08/06/18 08/31/19 Previous Rx's Medication Instructions Recorded albuterol sulfate 2 puff IH Q6H PRN #8 gm 08/06/18 Allergies Allergy/AdvReac Type Severity Reaction Status Date / Time codeine Allergy Intermediate Itching Unverified 08/31/19 22:41 BANDAID ADHESIVE Allergy Mild SKIN Uncoded 08/31/19 22:41 IRRITATION General Stated Complaint: Headache PEDRO: 3 Review of Systems All systems reviewed & are unremarkable except as noted in HPI and below Constitutional Constitutional: Reports chills, Reports fatigue, Reports fever(s), Reports headache(s) and Reports malaise ENT Ears, Nose, Mouth, and Throat: Denies otalgia, Reports headache(s), Denies nasal congestion, Denies post nasal drip and Denies sore throat Cardiovascular Cardiovascular: Denies dyspnea and Denies dyspnea on exertion Respiratory Respiratory: Reports cough, Denies dyspnea, Denies dyspnea on exertion and Denies wheezing Gastrointestinal Gastrointestinal: Denies abdominal pain, Denies diarrhea, Reports nausea and Reports vomiting Genitourinary Genitourinary: Denies dysuria and Denies urinary urgency Musculoskeletal Musculoskeletal: Reports myalgias Neurologic Neurologic: Reports headache(s) Endocrine Endocrine: Reports fatigue Allergic/Immunologic Allergic/Immunologic: Denies wheezing [facility] Medical History Asthma (Chronic) Migraine (Chronic) Social History Smoking/Tobacco Use Status: Current every day Alcohol Intake: never Drug use: Never Substance use type: does not use Do you feel safe at home: Yes Do you feel safe in your relationship?: Yes Exam Narrative Exam Narrative: CONST: Healthy appearing patient, in no acute distress. Well hydrated. Alert and oriented. HENMT: Head nomocephalic, normal to inspection. Atraumatic. Hearing grossly normal. TMs appear normal bilaterally, mild left ear effusion. Minimal pharyngeal erythema. EYES: General normal appearance. Alignment normal. Eyelids normal. Conjunctiva normal. PERRLA. Extraocular movements intact. No nystagmus. NECK: Normal visual inspection. FROM. Trachea midline. No Midline tenderness. No cervical lymphadenopathy present. CHEST: Normal insepection of the chest. RESP: Normal respiratory effort. Speaking full sentences. No cough. No audible wheezing. No retractions. Breath sounds are clear, full and equal bilaterally. No wheezing, rhonchi or rales CARDIO: No JVD. No murmurs, regular rate and rhythm. MUSCULOSKELETAL: Normal Gait. FROM of all extremities. Neuro: Alert and oriented x 3. Speech is clear. Cranial nerves intact as tested III - XI. Normal Dspawh-mi-jegi test. No pronator drift. Normal heel-henderson test. No Nystagmus. Strength intact in all extremities. Sensation intact in all extremities. Course Vital Signs Vital signs: Vital Signs Temperature 36.7 C 08/31/19 22:37 Pulse 90 08/31/19 22:37 Respiratory Rate 18 08/31/19 22:37 Blood Pressure 113/60 08/31/19 22:37 Pulse Oximetry 95 08/31/19 22:37 Temperature 36.7 C 08/31/19 22:37 Temperature Source Skin 08/31/19 22:37 Pulse 90 08/31/19 22:37 Respiratory Rate 18 08/31/19 22:37 Respiratory Effort Non-Labored 08/31/19 22:41 Blood Pressure 113/60 08/31/19 22:37 Pulse Oximetry 95 08/31/19 22:37 Pain Level 7 08/31/19 22:37
[2019-08-31] MEDS: Metoclopramide 10 MG/2 ML VIAL IVP (23:30)
[2019-08-31] MEDS: Normal Saline 1,000 ML 1000 ML IV (23:30)
[2019-08-31 23:33] LABS: Abs Immature Grans 0.03 k/cumm (0.0-0.09); Absolute Basophil Count 0.05 k/cumm (0.0-0.2); Absolute Eosinophil Count 0.17 k/cumm (0.0-0.7); Absolute Lymphocyte Count 1.37 k/cumm (1.2-3.4); Absolute Monocyte Count 1.06 k/cumm (0.11-0.7); Absolute Neutrophil Count 6.81 k/cumm (1.2-6.7); Basophils % 0.5; Eosinophils % 1.8; HCT 39.4 % (36.0-46.0); HGB 13.4 g/dL (12.0-15.5); Immature Grans % 0.3 %; Lymphocytes % 14.4; Mean Corpuscular Hemoglobin 30.7 pg (27.0-33.0); Mean Corpuscular Volume 90.4 fL (80-95); Monocytes % 11.2; Neutrophils % 71.8; Platelet Count 194 x1000/uL (130-400); RBC 4.36 m/cumm (4.00-5.20); RBC Distribution Width 14.4 % (11.7-14.6); White Blood Cell Count 9.49 k/cumm (4.4-10.8)
[2019-08-31] MEDS: Ketorolac 15 MG/ML VIAL IVP (23:34)
[2019-08-31 23:46] LABS: ALT 29 U/L (14-59); AST 16 U/L (15-37); Albumin 3.8 g/dL (3.4-5.0); Alkaline Phosphatase 48 U/L (46-116); Anion Gap 9.2 mmol/L (3-11); BUN 10 mg/dL (7-18); Bilirubin, Total 0.3 mg/dL (0.2-1.0); CO2 28.8 mmol/L (21.0-32.0); CREATININE 0.85 mg/dL (0.55-1.02); Calcium 8.6 mg/dL (8.5-10.1); Chloride 104 mmol/L (98-107); Glucose 81 mg/dL (74-106); Potassium 3.4 mmol/L (3.5-5.1); Sodium 142 mmol/L (136-145); Total Protein 6.9 g/dL (6.4-8.2)
[2019-09-01] MEDS: Ondansetron 4 MG/2 ML VIAL IVP (00:34)
[2019-09-01 00:53] VITALS: BP 108/60; PULSE 74; RESP 16; O2SAT 92
== END 2019-09-01 01:00 | disposition home or self-care (01) ==
PROVIDERS: Emergency Provider Physician Assistant; PCP Family Medicine
DX: R05 Cough (principal); R11.2 Nausea with vomiting, unspecified; R50.9 Fever, unspecified; M79.10 Myalgia, unspecified site; B34.9 Viral infection, unspecified; G43.909 Migraine, unspecified, not intractable, without status migrainosus
CPT/HCPCS: 36415; 80053; 81025; 87449; 96361; 96374; 96375; 99284; 85025; J1885; J2405; J2765